=== PATIENT | female | born 1960 | race Caucasian/White ===

== ENCOUNTER 2016-07-03 10:36 | Day surgery (SDC) | payer OTHER ==
[2016-07-01 09:50] VITALS: BMI 26.0
[2016-07-03] MEDS ORDERED: LIDOCAINE HCL 1%, 10 MG/ML (20ML VIAL) ONE ×2 (12:20→13:23)
[2016-07-03] MEDS ORDERED: METHYLENE BLUE 1% 10 MG/1 ML VIAL ONE (13:23)
[2016-07-03] MEDS ORDERED: MIDAZOLAM HCL 2 MG/2 ML SINGLE DOSE VIAL ONE (13:38)
[2016-07-03] MEDS ORDERED: DEXAMETHASONE SOD PHOSPHATE 4 MG/1 ML VIAL ONE ×2 (13:39→15:04)
[2016-07-03] MEDS ORDERED: SODIUM CHLORIDE 0.9% P/F 10 ML VIAL IJ ONE (13:39)
[2016-07-03] MEDS ORDERED: ONDANSETRON 4 MG/2 ML VIAL ONE ×2 (13:39→15:04)
[2016-07-03] MEDS ORDERED: PROPOFOL 20 ML ONE (13:40)
[2016-07-03] MEDS ORDERED: ceFAZolin SODIUM 1 GM VIAL ONE (13:46)
[2016-07-03] MEDS ORDERED: ceFAZolin SODIUM 1 GM VIAL IVPB ONE (13:53)
[2016-07-03] MEDS ORDERED: LIDOCAINE HCL 1%, 10 MG/ML (20ML VIAL) IJ ONE (13:58)
[2016-07-03] MEDS ORDERED: LIDOCAINE HCL 1%, 10 MG/ML (20ML VIAL) INF ONE (13:58)
[2016-07-03] MEDS ORDERED: ePHEDrine SULFATE 50 MG/1 ML AMPULE ONE (14:07)
[2016-07-03] MEDS ORDERED: oxyCODONE HCL 5 MG TABLET PO PRN (15:16)
[2016-07-03] MEDS ORDERED: ONDANSETRON 4 MG/2 ML VIAL IVPUSH PRN (15:16)
[2016-07-03] MEDS ORDERED: morphine CARPU-JECT 4 MG/1 ML DISP.SYRIN IVPUSH PRN (15:26)
--- NOTE | 2016-07-03 15:28 | HP ---
History & Physical Update - History History: No Change - Physical Physical: No Change - Assessment Assessment: No Change - Plan Plan: No Change
[2016-07-03] MEDS ORDERED: LACTATED RINGERS SOLUTION 1,000 ML IV SCH (15:30)
[2016-07-03] MEDS ORDERED: ACETAMINOPHEN 1000 MG/100 ML VIAL (NON FORMULARY) IVPB ONE (15:37)
--- NOTE | 2016-07-03 16:00 | OP ---
DATE OF OPERATION: 07/03/2016 PREOPERATIVE DIAGNOSIS: Bilateral axillary masses. POSTOPERATIVE DIAGNOSIS: Bilateral axillary masses. PROCEDURE: Excision of bilateral axillary masses with primary reconstruction. SURGEON: Mariposa Gilman MD ANESTHESIA: General. ESTIMATED BLOOD LOSS: 50 mL. DRAINS: None. COMPLICATIONS: None. This was a sterile procedure. INDICATIONS: The patient presented with bilateral axillary masses that were firm, and she was worried; so, we decided to go ahead with an excision of these. The procedure was discussed and all the questions answered. PROCEDURE IN DETAIL: Patient was brought to [facility] and taken into the operating room where, after induction of general anesthesia, both axilla and breasts were prepped and draped in the usual sterile fashion. First, the right axillary mass was excised. An ellipse of skin was taken to include the skin, and this was excised en bloc, tagged with a long stitch laterally, short stitch superior, sent to pathology for permanent section. There was a wide defect left measuring 15 cm x 5 cm. Therefore, superior, inferior, medial, and lateral flaps were raised, and a tissue transfer procedure was performed to approximate the parenchyma in 2 layers of interrupted 2-0 Vicryl, skin approximated with interrupted 0 Vicryl and running 4-0 Biosyn. Next, the left axillary mass was excised, and an ellipse of skin was taken to include overlying skin to have less redundancy, and this was excised in completion and tagged with a long stitch lateral, short stitch superior, and sent to pathology for permanent section. Again, there was a wide defect left measuring 15 cm x 6 cm, and therefore, a tissue transfer procedure was performed. Superior, inferior, medial, and lateral flaps were raised, and tissue was moved into the excision area and suture together with 2 layers of interrupted 2-0 Vicryl, skin approximated with interrupted 3-0 Vicryl and running 4-0 Biosyn. A sterile dressing of Steri-Strips and Tegaderm was applied. She tolerated the procedure well, left the operating room in good condition. MARIPOSA GILMAN M.D. [id number]
[2016-07-03 16:44] VITALS: TEMP 98.6
[2016-07-03] MEDS ORDERED: ACETAMINOPHEN INJECTION 100 ML IVPB ONE (16:56)
[2016-07-03 17:54] VITALS: BP 120/68; PULSE 90
--- NOTE | 2016-07-08 13:59 | PATH ---
Surgical Pathology Report Patient Name: VIRGINIA NGUYEN [facility]. Rec. #: [id number] /Age/Gender: 1960 (Age: 55) / F Account: [id number] Location: [facility] SURGICAL Taken: 07/03/2016 Received: 07/04/2016 Reported: 07/08/2016 Physicians: Mariposa Mcneil M.D. Specimen(s) Received A: RIGHT AXILLARY MASS B: LEFT AXILLARY MASS Clinical History Bilateral axillary masses Final Diagnosis A. AXILLARY MASS, RIGHT, EXCISION: FATTY BREAST TISSUE WITH ATYPICAL LOBULAR HYPERPLASIA (ALH) WITH FOCAL ASSOCIATED MICROCALCIFICATIONS. B. AXILLARY MASS, LEFT, EXCISION: BENIGN FATTY BREAST TISSUE Comment: The findings are compatible with accessory axillary breast tissue. Immunohistochemical stain for E-cadherin performed and interpreted at [facility] on block A6 highlights foci of ALH with negative membranous E-cadherin stain supporting the interpretation above. The case was discussed with Dr. Mcneil on 07/08/16. Electronically Signed Kale Ortega M.D. Gross Description A. Received in formalin, labeled "right axillary mass" is a 10.8 x 8.0 x 4.8 cm. land-yellow, irregular, portion of fibroadipose tissue. There is a short suture marking the superior aspect and a long suture marking the lateral aspect, per the surgeon. The anterior surface displays a 9.8 x 5.4 cm land, elliptical, unremarkable portion of skin. The specimen is inked as follows: Superior blue; inferior green; lateral red; medial yellow; deep black. The specimen is serially sectioned from lateral to medial. Sectioning reveals a focus of hemorrhage at the lateral aspect of the specimen. The remaining parenchyma displays foci of thin white fibrous tissue. No definitive masses are identified. [employer] sections are submitted in 7 cassettes as follows: 1-4-focus of hemorrhage; 2-0-yqvarrhrxx fibrous tissue and skin. B. Received in formalin, labeled "left axillary mass" is a 11.5 x 9.0 x 6.0 cm. land-yellow, irregular, portion of fibroadipose tissue . There is a short suture marking the superior aspect and a long suture marking the lateral aspect, per the surgeon. The anterior surface displays an 11.3 x 5.0 cm land, elliptical, unremarkable portion of skin. The specimen is inked as follows: Superior blue; inferior green; lateral red; medial yellow; deep black. The specimen is serially sectioned from medial to lateral. Sectioning reveals foci of white fibrous tissue. No definitive masses are identified. [employer] Clerk sections are submitted in 6 cassettes. 07/04/2016 [facility] [place]07/04/2016
== END 2016-07-03 17:50 | disposition home or self-care (01) ==
LOC: JASU-SURG 10:36
PROVIDERS: ATTEND Surgery
PROC: 0JX60ZB Transfer Chest Subcutaneous Tissue and Fascia with Skin and Subcutaneous Tissue, Open Approach (ICD-10-PCS; 2016-07-03)
PROC: 0HBV0ZX Excision of Bilateral Breast, Open Approach, Diagnostic (ICD-10-PCS; principal; 2016-07-03 12:30)
DX: D48.1 Neoplasm of uncertain behavior of connective and other soft tissue (principal); D21.3 Benign neoplasm of connective and other soft tissue of thorax
CPT/HCPCS: 88305-TC; 88342-TC; 94760

== ENCOUNTER 2024-04-11 09:23 | Observation (INO) | payer OTHER ==
[2024-04-11 10:52] LABS: BASO % 0.4 % (0-2.0); EOS % 0.2 % (0-4.5); HEMATOCRIT 40.8 % (32.4-45.2); HEMOGLOBIN 13.2 GM/dL (10.7-15.3); LYMPH % 15.5 % (8-40); MCH 29.7 pg (25.7-33.7); MCHC 32.3 g/dl (32.0-36.0); MEAN CELL VOLUME 91.8 fl (80-96); MEAN PLT VOLUME 9.1 fl (7.5-11.1); MONO % 3.7 % (3.8-10.2); NEUT % 80.2 % (42.8-82.8); PLATELET COUNT 211 10^3/uL (134-434); RBC 4.44 M/mm3 (3.60-5.2); RDW 13.9 % (11.6-15.6); WHITE BLOOD COUNT 13.7 K/mm3 (4.0-10.0)
[2024-04-11 10:56] LABS: INR 0.99 (0.83-1.09); PROTHROMBIN TIME (PATIENT) 11.4 SEC (9.7-13.0)
[2024-04-11 10:59] LABS: ACTIVATED PTT 31.1 SECONDS (25.2-36.5)
[2024-04-11 11:12] LABS: POTASSIUM 4.1 mmol/L (3.5-5.1)
[2024-04-11 11:14] LABS: CALCIUM 9.5 mg/dL (8.5-10.1); MAGNESIUM 1.9 mg/dL (1.8-2.4)
[2024-04-11 11:19] LABS: BILIRUBIN,TOTAL 0.5 mg/dL (0.2-1)
[2024-04-11] MEDS ORDERED: ACETAMINOPHEN INJECTION 100 ML ONE (11:20)
[2024-04-11] MEDS: ACETAMINOPHEN 1000 MG/100 ML BAG IVPB ONE (11:25)
[2024-04-11 12:52] LABS: HIV INTERPRETATION NEGATIVE (NEGATIVE)
[2024-04-11] MEDS ORDERED: MORPHINE SULFATE 2 MG/ML SYRINGE IVPUSH PRN (17:12)
[2024-04-11] MEDS ORDERED: ALBUTEROL SO4 HFA INHALER IH PRN (18:21)
[2024-04-11] MEDS: MONTELUKAST NA 10 MG TABLET PO SCH (23:01)
[2024-04-11] MEDS: DULoxetine HCL 30 MG CAPSULE.DR PO SCH (23:01)
[2024-04-11] MEDS: ROSUVASTATIN CA 20 MG TABLET PO SCH (23:23)
[2024-04-11 23:45] VITALS: BMI 27.8
[2024-04-12] MEDS: PANTOPRAZOLE 40 MG TABLET PO SCH (07:15)
[2024-04-12 09:01] LABS: BASO % 0.3 % (0-2.0); EOS % 1.2 % (0-4.5); HEMATOCRIT 37.5 % (32.4-45.2); HEMOGLOBIN 12.2 GM/dL (10.7-15.3); LYMPH % 22.6 % (8-40); MCH 29.8 pg (25.7-33.7); MCHC 32.4 g/dl (32.0-36.0); MEAN CELL VOLUME 91.9 fl (80-96); NEUT % 69.9 % (42.8-82.8); PLATELET COUNT 214 10^3/uL (134-434); RBC 4.08 M/mm3 (3.60-5.2); RDW 13.9 % (11.6-15.6); WHITE BLOOD COUNT 9.6 K/mm3 (4.0-10.0)
[2024-04-12 09:05] LABS: HEMATOCRIT 37.3 % (32.4-45.2); HEMOGLOBIN 12.2 GM/dL (10.7-15.3); MCH 30.1 pg (25.7-33.7); MCHC 32.6 g/dl (32.0-36.0); MEAN CELL VOLUME 92.3 fl (80-96); MEAN PLT VOLUME 9.2 fl (7.5-11.1); PLATELET COUNT 200 10^3/uL (134-434); RBC 4.04 M/mm3 (3.60-5.2); RDW 13.6 % (11.6-15.6); WHITE BLOOD COUNT 9.8 K/mm3 (4.0-10.0)
[2024-04-12 09:20] LABS: POTASSIUM 4.3 mmol/L (3.5-5.1)
[2024-04-12 09:24] LABS: ALBUMIN 3.6 g/dl (3.4-5.0); BLOOD UREA NITROGEN 9.9 mg/dL (7-18); CALCIUM 8.8 mg/dL (8.5-10.1); MAGNESIUM 1.9 mg/dL (1.8-2.4)
[2024-04-12 09:27] LABS: CREATININE 0.8 mg/dL (0.55-1.3); PHOSPHOROUS 3.4 mg/dL (2.5-4.9)
[2024-04-12 09:29] LABS: BILIRUBIN,TOTAL 0.5 mg/dL (0.2-1); TOT PROT 7.2 g/dl (6.4-8.2)
[2024-04-12] MEDS ORDERED: FLUTICASONE PROP 0.05% 16 GM NASAL SPRAY NS PRN (10:00)
[2024-04-12] MEDS: CEFTRIAXONE 1 GM in DEXTROSE 5%-WATER - 50 ML IVPB SCH (10:03)
[2024-04-12] MEDS: amLODIPine BESYLATE 5 MG TABLET (FP) PO SCH (10:04)
[2024-04-12 13:20] LABS: URINE APPEARANCE CLEAR; URINE BILIRUBIN NEGATIVE (NEGATIVE); URINE COLOR YELLOW; URINE GLUCOSE (UA) NEGATIVE (NEGATIVE); URINE KETONE NEGATIVE (NEGATIVE); URINE LEUK ESTERASE NEGATIVE (NEGATIVE); URINE NITRITE NEGATIVE (NEGATIVE); URINE PROTEIN NEGATIVE (NEGATIVE); URINE UROBILINOGEN 0.2 mg/dL (0.2-1.0)
[2024-04-12] MEDS: SODIUM CHLORIDE 1,000 ML IV SCH (13:53)
[2024-04-12] MEDS: ACETAMINOPHEN 1000 MG/100 ML BAG IVPB PRN (18:19)
[2024-04-12] MEDS: LIDOCAINE 5% TOPICAL PATCH TP ONE (18:48)
[2024-04-13] MEDS: LIDOCAINE PATCH REMOVAL MC ONE (06:32)
[2024-04-13 08:39] LABS: BASO % 0.3 % (0-2.0); EOS % 1.9 % (0-4.5); HEMATOCRIT 35.5 % (32.4-45.2); HEMOGLOBIN 11.4 GM/dL (10.7-15.3); LYMPH % 34.3 % (8-40); MCH 29.8 pg (25.7-33.7); MCHC 32.2 g/dl (32.0-36.0); MEAN CELL VOLUME 92.5 fl (80-96); MONO % 6.4 % (3.8-10.2); NEUT % 57.1 % (42.8-82.8); PLATELET COUNT 172 10^3/uL (134-434); RBC 3.84 M/mm3 (3.60-5.2); RDW 13.4 % (11.6-15.6); WHITE BLOOD COUNT 5.2 K/mm3 (4.0-10.0)
[2024-04-13 08:46] LABS: INR 1.02 (0.83-1.09); PROTHROMBIN TIME (PATIENT) 11.7 SEC (9.7-13.0)
[2024-04-13 09:11] LABS: POTASSIUM 4.3 mmol/L (3.5-5.1)
[2024-04-13 09:18] LABS: ALBUMIN 3.2 g/dl (3.4-5.0); BLOOD UREA NITROGEN 5.9 mg/dL (7-18); CALCIUM 8.6 mg/dL (8.5-10.1); MAGNESIUM 1.9 mg/dL (1.8-2.4)
[2024-04-13 09:22] LABS: BILIRUBIN,TOTAL 0.4 mg/dL (0.2-1); CREATININE 0.7 mg/dL (0.55-1.3); TOT PROT 6.5 g/dl (6.4-8.2)
[2024-04-13 10:35] VITALS: BP 110/66; PULSE 79; RESP 16; TEMP 98.2
[2024-04-13] MEDS: CEFTRIAXONE 1 G/50 ML PREMIX 50 ML IVPB SCH (11:57)
== END 2024-04-13 15:17 | disposition home or self-care (01) ==
LOC: JER 09:23 → JERBED 14:43 → INTOOBSV 14:43 → UNDOADMOB 14:43 → JERBED 15:09 → J8W 20:06
PROVIDERS: ADMIT Internal Medicine; ATTEND Nurse Practitioner Family
PROC: 3E033GC Introduction of Other Therapeutic Substance into Peripheral Vein, Percutaneous Approach (ICD-10-PCS; principal; 2024-04-11)
PROC: 3E03329 Introduction of Other Anti-infective into Peripheral Vein, Percutaneous Approach (ICD-10-PCS; 2024-04-11)
PROC: 3E033NZ Introduction of Analgesics, Hypnotics, Sedatives into Peripheral Vein, Percutaneous Approach (ICD-10-PCS; 2024-04-11)
DX: K52.9 Noninfective gastroenteritis and colitis, unspecified (principal); K62.5 Hemorrhage of anus and rectum; J45.909 Unspecified asthma, uncomplicated; I10 Essential (primary) hypertension; E78.5 Hyperlipidemia, unspecified; K64.9 Unspecified hemorrhoids; Z90.49 Acquired absence of other specified parts of digestive tract
CPT/HCPCS: 36415; 74174-TC; 80053; 81003; 82272; 83605; 83690; 83735; 84100; 84484; 85025; 85027; 85610; 85730; 86803; 86850; 86900; 86901; 87045; 87046; 87086; 87186; 87324; 87389; 87449; 93005; 93010; 96361; 96365; 96366; 96367; 96375; 96376; 99285-25; G0378; J0131